=== PATIENT | female | born 1950 | race Caucasian/White ===

== ENCOUNTER → 2018-01-27 | Outpatient (CLI) | payer MEDICARE ==
[~2018-01-27] MED LIST: ALEVE220 MG PO; ARICEPT10 M1 PO; ASPIR-TRIN325 MG PO; METFORMIN HCL500 MG PO; NAMENDA 10 MG T10 MG PO; PERCOCET PO; TRAMADOL 50 MG50 MG PO; TYLENOL325 MG PO; XARELTO10 MG PO
== END ==
LOC: M.MRI 10:42
DX: S83.242A Other tear of medial meniscus, current injury, left knee, initial encounter (principal); M17.12 Unilateral primary osteoarthritis, left knee; M25.462 Effusion, left knee; X58.XXXA Exposure to other specified factors, initial encounter; Y93.89 Activity, other specified; Y92.89 Other specified places as the place of occurrence of the external cause; Y99.8 Other external cause status

== ENCOUNTER 2018-02-16 08:10 | Inpatient (IN) | payer MEDICARE ==
[2018-02-11 09:31] LABS: PROTIME 9.4 Seconds (9.20-11.50)
[2018-02-11 09:42] LABS: URINE BILIRUBIN NEGATIVE (Negative); URINE BLOOD 1+ (Negative); URINE CLARITY CLEAR; URINE COLOR YELLOW; URINE GLUCOSE-RANDOM NEGATIVE (Negative); URINE KETONES NEGATIVE (Negative); URINE NITRITE-REFLEX NEGATIVE (Negative); URINE PROTEIN TRACE (Negative); URINE SPECIFIC GRAVITY >= 1.030 (1.005-1.030); URINE UROBILINOGEN 0.2 E.U./dl (0.2-1.0)
[2018-02-11 09:45] LABS: URINE LEUKOCYTES-REFLEX 2+ (Negative)
[2018-02-11 10:18] LABS: BACTERIA-REFLEX >30 Many /HPF (None Seen); SQUAMOUS 4-10 Moderate /LPF (0-3); URINE RBC 3-10 Few /HPF (0-2)
[2018-02-11 10:19] LABS: CASTS None Seen /LPF (None Seen); CRYSTALS None Seen /LPF (None Seen); MUCUS None Seen strn/LPF (None Seen)
--- NOTE | 2018-02-11 14:05 | EKG ---
[place] [address] ELECTROCARDIOGRAM REPORT Name: JERZY PRIETO Room: PRE IN ..#: [id number] Admission: Attend Phys: Mindy Waddell Discharge: Date of : 46 Report #: [id number] THIS REPORT FOR: //name// [facility] Test Date: 2018-02-11 Test Time: 09:24:07 Pat Name: JERZY PRIETO Department: Room: Gender: F Stock Replenisher: : 1950 Requested By: Earl Rosado Order Number: [id number] Reading MD: Sathya Mccauley Measurements Intervals [place] Rate: 90 P: 30 HI: 157 QRS: 22 QRSD: 82 T: 49 QT: 355 QTc: 435 Interpretive Statements Sinus rhythm No previous ECG available for comparison Electronically Signed On 02-11-2018 14:05:30 CDT by Sathya Mccauley [email or web address] <ELECTRONICALLY SIGNED> By: Sathya Mccauley MD, [facility] 02/11/18 1405 [id number] [id number] Sathya Mccauley MD, FACC /EPI
[~2018-02-16] VITALS: Ht 172.7 cm; Wt 122.5 kg
[~2018-02-16 08:10] MED LIST changes: -ASPIR-TRIN325 MG PO; -PERCOCET PO; -TRAMADOL 50 MG50 MG PO; -XARELTO10 MG PO
[2018-02-16 10:00] VITALS: BP 131/75
[2018-02-16 14:46] VITALS: BP 135/71
--- NOTE | 2018-02-16 15:09 | NUR ---
PATIENT TRANSFERRED FROM PACU TO ROOM 104. ALERT AND ORIENTED X1. H/O ALZHEIMERS. O2 AT 2L. CAPNO IN PLACE. IVF INFUSING ORDERED. DENIES PAIN CURRENTLY. SLEEPING. SCD'S AND RIGHT MAME IN PLACE. POLAR CARE IN USE. BED ALAR SET. AT BEDSIDE. WILL CONTINUE TO MONITOR.
--- NOTE | 2018-02-16 16:09 | NUR ---
PATIENT REMAINS AT BASELINE ORIENTATION. DROWSY. TOLERATING LIQUIDS. DINNER ORDERED. DRESSING TO KNEE DRY AND INTACT. O2 AT 2L. CAPNO IN PLACE. SAT 98%. INCENTIVE SPIROMETER STARTED. CPM TO START THIS EVENING. BED ALARM SET. WILL CONTINUE TO MONITOR.
[2018-02-16 20:00] VITALS: BP 144/74
[2018-02-17 00:09] VITALS: BP 140/65
[2018-02-17 04:26] LABS: HEMATOCRIT 32.2 % (37.0-47.0); HEMOGLOBIN 10.6 gm/dL (12.0-15.0)
[2018-02-17 04:31] VITALS: BP 145/84
--- NOTE | 2018-02-17 04:33 | NUR ---
PATIENT HAS REMAINED AND ALERT AND ORIENTED TO SELF. FORGETFUL AT TIMES TO SITUATION AND PLACE. ASKING IF HER DOG IS HERE. HAS FORGOTTEN WHAT CONVERSATIONS THAT TOOK PLACE EARLIER IN THE SHIFT. DRESSING LEFT KNEE CLEAN AND DRY WITH HEMOVAC PRESENT. MAME HOSE RIGHT LE REMOVED AT 0400 DUE TO ROLLING WITH BUNCHING. CPM STARTED AT HS X 2 HOURS. TOLERATED WELL. PRE-MEDICATED WTIH ORAL PAIN MEDICATION TO GOOD EFFECT. INCREASED PAIN EARLY AM WITH TRANSFER OUT OF BED TO [facility]. MOD ASSIST OF 2, GAIT BELT AND WALKER. ADEQUATE VOIDS AND ORAL INTAKE. NO NAUSEA THIS SHIFT. VITAL SIGNS STABLE. CONTINUE TO MONITOR.
--- NOTE | 2018-02-17 06:00 | NUR ---
HEMOVAC DRAIN LEFT LATERAL KNEE DISCONTINUED PER ORDERS. PRESSURE DRESSING (FOLDED 4X4 WITH TEGADERM) APPLIED.
--- NOTE | 2018-02-17 09:14 | NUR ---
RECIEVED O.T. ORDERS. WILL DEFER TO P.T. AND NURSING AT THIS TIME. PLEASE ORDER FURTHER O.T. SERVICES IF NEEDED.
--- NOTE | 2018-02-17 11:12 | NUR ---
PER DR. FRY PATIENT DOES NOT NEED TO TAKE LAST IV ABX SHE REMOVED HER OWN IV THIS AM.
--- NOTE | 2018-02-17 11:47 | NUR ---
MAME HOSE REMOVED DUE TO BEING TO SMALL AND UNCOMFORTABLE.
--- NOTE | 2018-02-17 14:18 | NUR ---
PT.IN RECLINER EATING LUNCH. AT BEDSIDE. PT.LOOKS TO FOR SOME OF THE ANSWERS. PT.HAS FRONT WHEEL WALKER IN ROOM FOR THERAPY TO LOOK AT AND OK. SAID SHE USED A CANE WHEN THEY WENT OUT PRIOR TO SURGERY. PT.SAID SHE IS INDEPENDENT WITH BATHING AND DRESSING. HER DOES THE COOKING. THEY EAT OUT ALOT. Josefina TRIPLETTSAID PT.MAY NEED SNF AFTER THIS MORNINGS THERAPY. GAVE A LIST OF SNFS TO LOOK AT AND WE WOULD SEE HOW SHE PROGRESSED WITH HER NEXT VIEW THERAPY SESSIONS.
[2018-02-17 15:56] VITALS: BP 140/77
--- NOTE | 2018-02-17 16:13 | NUR ---
PATIENT REMAINS AT BASELINE ORIENTATION. HYDROCODONE AND TRAMADOL EFFECTIVE FOR PAIN. PATIENT REMOVED IV THIS AM. DR ANDRADE NOTIFIED AND ORDERS TO DC LAST IV ANCEF. PATIENT PATICIPATED WITH PHYSICAL THERAPY. HAS TROUBLE FOLLOWING/REMEMBERING DIRECTIONS DUE TO ALZHEIMERS. DRESSING TO LEFT KNEE DRY AND INTACT. CPM USED X 2 THIS SHIFT. BED/CHAIR ALARM IN USE. VOIDING PER BSC. TOLERATING MEALS. CALL LIGHT WITHIN REACH. WILL CONTINUE TO MONITOR.
[2018-02-17 20:05] VITALS: BP 164/82
[2018-02-18 03:56] VITALS: BP 188/83
[2018-02-18 04:06] LABS: HEMATOCRIT 31.2 % (37.0-47.0); HEMOGLOBIN 10.5 gm/dL (12.0-15.0)
--- NOTE | 2018-02-18 04:26 | NUR ---
PATIENT IS ALERT TO SELF, PLEASANTLY CONFUSED. DOES NOT REMEMBER HAVING SURGERY AND DOESNT UNDERSTAND WHY SHE CANT GO HOME. CAME BACK LAST NIGHT TO HELP PATIENT RELAX UNTIL SHE FELL ASLEEP. TRAMADOL GIVEN X 2 FOR PAIN, EFFECTIVE. UP WITH ASSIST X 1 TO BSC, REQUIRES EXTRA TIME AND REPEATED DIRECTIONS. FREQUENT ROUNDS. BED ALARM IN USE. NURSING WILL CONTINUE TO MONITOR.
[2018-02-18 08:00] VITALS: BP 138/62
[2018-02-18] MEDS ORDERED: TRAMADOL 50 MG50 MG PO (09:17)
[2018-02-18] MEDS ORDERED: XARELTO10 MG PO (09:17)
[2018-02-18 09:18] VITALS: BP 138/62
[2018-02-18] MEDS ORDERED: PERCOCET PO (09:18)
--- NOTE | 2018-02-18 10:20 | NUR ---
Following for d/c planning needs. Pt and spouse state pt has had [facility] in the past. Spouse toured [facility] this morning. He would prefer pt return home with home health if she does ok with therapy today. Faxed referral to [facility] and called to confirm receipt.
[2018-02-18] MEDS ORDERED: ASPIR-TRIN325 MG PO (12:50)
--- NOTE | 2018-02-18 16:13 | NUR ---
PATIENT DISCHARGED TO HOME WITH HOME HEALTH. SPOUSE WISHES TO CARE FOR HER AT HOME DUE TO ALZHEIMERS. XARELTO TO EXPENSIVE SO IT WAS SUBSTITUTED WITH ASPIRIN PER DR. FRY. CPM, WALKER, AND POLAR CARE SENT WITH PATIENT. SPOUSE VERBALIZES UNDERSTANDING OF DC INSTRUCTIONS. SCRIPTS FOR TRAMADOL AND PERCOCET GIVEN.
--- NOTE | 2018-02-23 11:47 | OP ---
[facility] [address] [place] [address] OPERATIVE REPORT Name: JERZY PRIETO Room: [address] M.R.#: [id number] Admission: 02/16/18 Attend Phys: Mindy Waddell Discharge: 02/18/18 Date of : 46 Report #: [id number] THIS REPORT FOR: //name// CC: Boy Blake DATE OF SERVICE: 02/16/2018 PREOPERATIVE DIAGNOSIS: Left knee osteoarthritis. POSTOPERATIVE DIAGNOSIS: Left knee osteoarthritis. PROCEDURE: Left total knee arthroplasty. SURGEON: Earl Rosado II, DO. CONTRACT ADMINISTRATION SPECIALIST: ZENA Pavon. ANESTHESIA: General endotracheal. ESTIMATED BLOOD LOSS: 50 mL. ANTIBIOTICS: Ancef preoperatively. DRAINS: One Hemovac. COMPLICATIONS: None. CONDITION OF PATIENT: Stable to recovery room. IMPLANTS: Listed in the operative record and progress note. BRIEF HISTORY: The patient was seen in preoperative area. Preop H and P were performed. Site was marked, questions were answered. Risks and benefits were discussed with the patient in detail about surgery. The patient wished to proceed assuming all risks. DESCRIPTION OF PROCEDURE: The patient was taken to the operative suite, placed supine on the operative table and given appropriate anesthesia. A well-padded tourniquet applied to the upper thigh, which was inflated to 300 mmHg after gravity exsanguination. The operative knee was sterilely prepped and draped. Surgery begun by midline incision. This was carried down to subcutaneous tissues. A medial parapatellar arthrotomy was performed and carried down to bone. Toe was then everted and excess soft tissue removed from around the femur. Femoral cutting block was then applied, checked with a drop victoriano for [place] [id number] OPERATIVE REPORT Name: JERZY PRIETO Room: [address]#: [id number] Admission: 02/16/18 Attend Phys: Mindy Waddell Discharge: 02/18/18 Date of : 46 Report #: [id number] rotational alignment, pinned in appropriate position and proper cuts were made. A 4-in-1 cutting block was then applied, checked with a drop victoriano for rotational alignment, pinned in appropriate position and appropriate cuts were made. The tibia was exposed. The excess meniscus was removed. Retractor was placed on the collateral ligaments. The tibial cutting block was then applied, pinned in appropriate position, checked with the drop victoriano for rotational alignment and slope and appropriate cut was made. The tibial bone was removed. Tibial base plate was then applied, checked for rotational alignment with the drop victoriano and pinned in appropriate position. Femur was then applied and box cut was reamed. This was then trialed with appropriate spacer, which showed excellent fit and fill and excellent stability of the knee throughout all range of motion. The patella was then reamed in appropriate fashion and sized for appropriate size. Three peg holes were drilled. It was then trialed and shows to have excellent flexion, with excellent tracking of the patella within the groove. These trials were then removed. The tibia was then punched in appropriate fashion. Bone ends were cleaned with Pulsavac irrigation. Cement was mixed and applied to the final implants. These were then malleted into position and held with the knee in extension and compressed to allow the cement to cure. After it cured, excess was removed using [place] and osteotome. Wound was copiously irrigated. The final spacer was then malleted in position, tourniquet was deflated. Hemostasis was obtained with electrocautery. The pain cocktail was injected. PRP gel was applied throughout the internal aspects of the knee. The medium Hemovac drain was activated. Capsule was closed with #2 FiberWire and 1 Vicryl in [id number] fashion. Skin was closed with 2-0 Vicryl and running 3-0 Monocryl. Dermabond and sterile dressing, Kemal wrap, and PolarCare were applied. The patient transported to recovery room in stable condition. Counts were correct throughout the procedure. <ELECTRONICALLY SIGNED> By: Earl Rosado II, DO 02/23/18 1147 [id number] Rosado II, DO /nt
== END 2018-02-18 16:45 | disposition home health service (06) | DRG 470 ==
LOC: M.PRE 08:10 → M.ORTHSURG 09:33 → M.TBA 09:33 → M.PRE 10:00 → M.ORTHSURG 14:06 → M.PRE 14:30 → M.ORTHSURG 02-18 16:45
PROVIDERS: Orthopaedic Surgery; ADMIT Internal Medicine
PROC: 0SRD0J9 Replacement of Left Knee Joint with Synthetic Substitute, Cemented, Open Approach (ICD-10-PCS; principal; 2018-02-16)
DX: M17.12 Unilateral primary osteoarthritis, left knee (principal); J44.9 Chronic obstructive pulmonary disease, unspecified; E03.9 Hypothyroidism, unspecified; G30.9 Alzheimer's disease, unspecified; E11.9 Type 2 diabetes mellitus without complications; F02.80 Dementia in other diseases classified elsewhere, unspecified severity, without behavioral disturbance, psychotic disturbance, mood disturbance, and anxiety; Z98.42 Cataract extraction status, left eye; Z90.49 Acquired absence of other specified parts of digestive tract; Z90.710 Acquired absence of both cervix and uterus; Z79.82 Long term (current) use of aspirin; Z79.899 Other long term (current) drug therapy